=== PATIENT | male | born 1955 | race Caucasian/White ===

== ENCOUNTER 2020-10-31 06:00 | Day surgery (SDC) | payer MEDICARE ==
[2020-10-25 11:30] LABS: BASOPHILS % (AUTO) 0.3 % (0.0-5.0); EOSINOPHILS % (AUTO) 2.1 % (0.0-8.0); HEMATOCRIT 38.9 % (42-54); LYMPHOCYTES % (AUTO) 31.4 % (21.0-51.0); MEAN CORPUSCULAR HEMOGLOBIN 30.8 pg (27.0-33.0); MEAN CORPUSCULAR HGB CONC 33.7 g/dL (32.0-36.0); MEAN CORPUSCULAR VOLUME 91.5 fL (79-99); MONOCYTES % (AUTO) 7.6 % (3.0-13.0); NEUTROPHILS % (AUTO) 58.2 % (40.0-77.0); PLATELET COUNT (AUTO) 225 K/uL (130-400); RED BLOOD CELL COUNT(AUTO) 4.25 MIL/uL (4.50-6.20); RED CELL DISTRIBUTION WIDTH 12.8 % (11.0-15.5)
[2020-10-25 11:42] LABS: POTASSIUM 4.2 mmol/L (3.5-5.1)
[2020-10-30 10:24] VITALS: BP 132/71
[2020-10-31] VITALS (17 sets, daily range): BP systolic 132–192; BP diastolic 75–107
[~2020-10-31] VITALS: Ht 176.5 cm; Wt 84.8 kg
[~2020-10-31 06:00] MED LIST: CYAN-52 PO; MULT-1203 PO; OMEG-148 PO; PSYL1PAC11 PO
[2020-10-31] MEDS ORDERED: LACTATED RINGERS 1000ML 1,000 ML IV ONE (07:17)
[2020-10-31] MEDS ORDERED: CEFAZOLIN SODIUM 1 GM VIAL IVP ONE (08:00)
[2020-10-31] MEDS ORDERED: DEXAMETHASONE SOD PHOSPHATE 10MG/ML 1ML VIAL ONE (08:33)
[2020-10-31] MEDS ORDERED: LIDOCAINE PF 100MG/5ML (2%) SYRINGE 5ML ONE (08:33)
[2020-10-31] MEDS ORDERED: ONDANSETRON 4MG INJ ONE (08:34)
[2020-10-31] MEDS ORDERED: MIDAZOLAM HCL 1 MG/ML 2ML VIAL ONE (08:34)
[2020-10-31] MEDS ORDERED: FENTANYL CITRATE PF 50 MCG/1 ML 2ML VIAL ONE (08:35)
[2020-10-31] MEDS ORDERED: PROPOFOL 10 MG/ML 20ML VIAL IV ONE (08:35)
[2020-10-31] MEDS ORDERED: EPHEDRINE SULFATE 50 MG/ML AMPULE ONE ×2 (08:42→08:46)
[2020-10-31] MEDS ORDERED: EPINEPHRINE PF 1MG AMP ONE ×2 (08:58→09:10)
[2020-10-31 09:27] LABS: ABG HCO3 23.2 mmol/L (21.0-28.0); ABG OXYGEN SATURATION 99.5 % (95.0-99.0); ABG PCO2 42 mmHg (35-48)
[2020-10-31] MEDS ORDERED: POTASSIUM CHLORIDE 20MEQ/100ML 100 ML IV ONE (09:28)
[2020-10-31] MEDS ORDERED: NOREPINEPHRINE BITARTRATE 1 MG/1 ML ML IV ONE (09:34)
[2020-10-31] MEDS ORDERED: ACET1TAB25 PO (09:40)
[2020-10-31] MEDS ORDERED: CEPH500B PO (09:40)
[2020-10-31 10:00] LABS: BASOPHILS % (AUTO) 0.3 % (0.0-5.0); EOSINOPHILS % (AUTO) 2.3 % (0.0-8.0); HEMATOCRIT 38.4 % (42-54); LYMPHOCYTES % (AUTO) 31.8 % (21.0-51.0); MEAN CORPUSCULAR HEMOGLOBIN 30.2 pg (27.0-33.0); MEAN CORPUSCULAR HGB CONC 33.3 g/dL (32.0-36.0); MEAN CORPUSCULAR VOLUME 90.6 fL (79-99); MONOCYTES % (AUTO) 7.2 % (3.0-13.0); NEUTROPHILS % (AUTO) 58.1 % (40.0-77.0); PLATELET COUNT (AUTO) 211 K/uL (130-400); RED BLOOD CELL COUNT(AUTO) 4.24 MIL/uL (4.50-6.20); RED CELL DISTRIBUTION WIDTH 12.6 % (11.0-15.5); WHITE BLOOD COUNT (AUTO) 7.5 K/uL (4.8-10.8)
[2020-10-31 10:09] LABS: CARBON DIOXIDE 26 mmol/L (21-32); CHLORIDE 105 mmol/L (101-111); CREATININE 0.9 mg/dL (0.5-1.5); GLOMERULAR FILTR. RATE CALC 90 mL/min (>60); GLUCOSE,RANDOM 143 mg/dL (70-105); POTASSIUM 3.4 mmol/L (3.5-5.1); SODIUM SERUM 142 mmol/L (136-145); UREA NITROGEN, BLOOD 12 mg/dL (7-18)
[2020-10-31 10:28] LABS: ALANINE AMINOTRANSFERASE 31 U/L (12-78); ALBUMIN 3.6 g/dL (3.5-5.0); ASPARTATE AMINOTRANSFERASE 27 U/L (10-37); BILIRUBIN,TOTAL 0.4 mg/dL (0.2-1.0); CREATINE KINASE, TOTAL 144 U/L (21-232); MYOGLOBIN 47 ng/mL (10-92); TOTAL PROTEIN, SERUM 7.2 g/dL (6.0-8.3); TROPONIN I < 0.04 ng/mL (0.00-0.06)
== END 2020-10-31 11:45 | disposition home or self-care (01) ==
LOC: DAH 06:00
PROVIDERS: ATTEND Orthopaedic Surgery
DX: S83.271A Complex tear of lateral meniscus, current injury, right knee, initial encounter (principal); M17.12 Unilateral primary osteoarthritis, left knee; Z20.822 Contact with and (suspected) exposure to COVID-19; I42.9 Cardiomyopathy, unspecified; E78.5 Hyperlipidemia, unspecified; G89.29 Other chronic pain; E66.9 Obesity, unspecified; X50.1XXA Overexertion from prolonged static or awkward postures, initial encounter; Y93.89 Activity, other specified; Y92.89 Other specified places as the place of occurrence of the external cause
CPT/HCPCS: 29881; 36415 ×2; 80048; 80053; 82435; 82550; 82803; 82947; 83605; 83874; 84132; 84295; 84484; 85018; 85025 ×2; 93005 ×2; 93306; A4215; A4221; A4222; A4223; A4606; A4649 ×2; A4663; A4930; A5120; A6223; C9803; J0171 ×2; J0690; J1100; J2001; J2250; J2405; J2704; J3010; J3480; J3490 ×3; J7040; J7120 ×2; U0003

== ENCOUNTER 2022-04-18 06:00 | Day surgery (SDC) | payer OTHER, MEDICARE ==
[2022-04-16 10:05] LABS: BASOPHILS % (AUTO) 0.3 % (0.0-5.0); EOSINOPHILS % (AUTO) 1.7 % (0.0-8.0); HEMATOCRIT 39.8 % (42-54); MEAN CORPUSCULAR HGB CONC 33.9 g/dL (32.0-36.0); MEAN CORPUSCULAR VOLUME 91.5 fL (79-99); MONOCYTES % (AUTO) 8.2 % (3.0-13.0); NEUTROPHILS % (AUTO) 69.4 % (40.0-77.0); PLATELET COUNT (AUTO) 211 K/uL (130-400); RED BLOOD CELL COUNT(AUTO) 4.35 MIL/uL (4.50-6.20); WHITE BLOOD COUNT (AUTO) 7.1 K/uL (4.8-10.8)
[2022-04-16 10:13] LABS: ALBUMIN 3.8 g/dL (3.5-5.0); CARBON DIOXIDE 29 mmol/L (21-32); CHLORIDE 101 mmol/L (101-111); CREATININE 1.1 mg/dL (0.5-1.5); GLOMERULAR FILTR. RATE CALC 71 mL/min (>60); GLUCOSE,RANDOM 99 mg/dL (70-105); POTASSIUM 4.1 mmol/L (3.5-5.1); SODIUM SERUM 139 mmol/L (136-145); UREA NITROGEN, BLOOD 14 mg/dL (7-18)
[2022-04-16 10:15] LABS: CRP QUANTITATIVE < 2.00 mg/L (0.00-9.0)
[2022-04-16 15:49] VITALS: BP 130/74
[2022-04-18] VITALS (19 sets, daily range): BP systolic 99–139; BP diastolic 54–89
[~2022-04-18] VITALS: Ht 175.3 cm; Wt 81.1 kg
[~2022-04-18 06:00] MED LIST changes: -OMEG-148 PO; +OMEP20CA12 PO; -PSYL1PAC11 PO; +ROSU10TA28 PO; +ZINC220T4 PO
[2022-04-18] MEDS: CEFAZOLIN SODIUM 1 GM VIAL IVP SCH ×2 (06:00→08:20)
[2022-04-18] MEDS ORDERED: EPINEPHRINE PF 1MG (1:1,000) 1 MG/ML AMP ONE (06:13)
[2022-04-18] MEDS ORDERED: LACTATED RINGERS 1000ML 1,000 ML IV ONE (06:43)
[2022-04-18] MEDS ORDERED: PHENYLEPHRINE HCL 10 MG/ML 1ML VIAL IV ONE ×2 (07:24→07:30)
[2022-04-18] MEDS ORDERED: DEXAMETHASONE SOD PHOSPHATE 10MG/ML 1ML VIAL ONE (07:24)
[2022-04-18] MEDS ORDERED: GLYCOPYRROLATE 1 MG/5 ML SYRINGE ONE (07:24)
[2022-04-18] MEDS ORDERED: PROPOFOL 10 MG/ML 20ML VIAL IV ONE (07:24)
[2022-04-18] MEDS ORDERED: ONDANSETRON 4MG INJ ONE (07:24)
[2022-04-18] MEDS ORDERED: MIDAZOLAM HCL 1 MG/ML 2ML VIAL ONE (07:25)
[2022-04-18] MEDS ORDERED: ROCURONIUM 10MG/1ML SYR 10 MG/ML ML ONE (07:25)
[2022-04-18] MEDS ORDERED: FENTANYL CITRATE PF 50 MCG/1 ML 2ML VIAL ONE (07:25)
[2022-04-18] MEDS ORDERED: NEOSTIGMINE 5MG/5ML SYR IV ONE (07:25)
[2022-04-18] MEDS ORDERED: LIDOCAINE PF 100MG/5ML (2%) SYRINGE 5ML ONE (07:26)
[2022-04-18] MEDS ORDERED: ROPIVACAINE 0.5% 5MG/ML 30ML IJ ONE (07:30)
[2022-04-18] MEDS ORDERED: DEXAMETHASONE SOD PHOSPHATE 4 MG/ML 1ML VIAL ONE (07:30)
[2022-04-18] MEDS ORDERED: HYDR-4068 PO (12:05)
[2022-04-18] MEDS ORDERED: CYCL5TAB PO (12:05)
[2022-04-18] MEDS ORDERED: MELO10CA3 PO (12:05)
== END 2022-04-18 13:45 | disposition home or self-care (01) ==
LOC: DAH 06:00
PROVIDERS: ATTEND Student in an Organized Health Care Education/Training Program
DX: S46.011A Strain of muscle(s) and tendon(s) of the rotator cuff of right shoulder, initial encounter (principal); S46.111A Strain of muscle, fascia and tendon of long head of biceps, right arm, initial encounter; M75.41 Impingement syndrome of right shoulder; M19.011 Primary osteoarthritis, right shoulder; G89.29 Other chronic pain; K21.9 Gastro-esophageal reflux disease without esophagitis; E78.5 Hyperlipidemia, unspecified; Z79.899 Other long term (current) drug therapy; Z79.01 Long term (current) use of anticoagulants; Z98.890 Other specified postprocedural states; X58.XXXA Exposure to other specified factors, initial encounter; Y93.89 Activity, other specified; Y92.89 Other specified places as the place of occurrence of the external cause
CPT/HCPCS: 82040; 80048; 85025; 84134; 86140; 87426; 36415; 29827; 29826; J1100 ×2; A4663; J7030; J7120 ×2; J3010; J0690; J3490; J2710; J2001; J0171; J2250; J2704; J2405; J2795; J2370 ×2; A6204; A4649 ×2; C1713; A5120; A4215; A4223; A4222; A4221; A4600

== ENCOUNTER 2024-02-04 16:12 | Emergency (ER) | payer MEDICARE, OTHER ==
[~2024-02-04] VITALS: Ht 175.3 cm; Wt 76.2 kg
[~2024-02-04 16:12] MED LIST changes: +CYCL5TAB PO; +HYDR-4068 PO; +MELO10CA3 PO; -ROSU10TA28 PO; +ROSU10TA72 PO
[2024-02-04] MEDS: DIPH,PERTUSS(ACELL),TET VAC/PF 0.5 ML VIAL IM ONE (18:03)
[2024-02-04 18:28] VITALS: BP 111/62; PULSE 63; RESP 20; O2SAT 99
== END 2024-02-04 18:49 | disposition home or self-care (01) ==
LOC: EDH 16:12
DX: S01.01XA Laceration without foreign body of scalp, initial encounter (principal); Z79.899 Other long term (current) drug therapy; Z98.890 Other specified postprocedural states; W11.XXXA Fall on and from ladder, initial encounter; Y93.89 Activity, other specified; Y92.89 Other specified places as the place of occurrence of the external cause; Y99.8 Other external cause status
CPT/HCPCS: 12002; 70450; 72125; 90471; 90715

== ENCOUNTER 2024-02-10 10:24 | Emergency (ER) | payer OTHER ==
[~2024-02-10] VITALS: Ht 175.3 cm; Wt 77.1 kg
[2024-02-10 10:26] VITALS: BP 159/84; PULSE 95; RESP 18
== END 2024-02-10 12:03 | disposition home or self-care (01) ==
LOC: EDH 10:24
DX: S01.01XD Laceration without foreign body of scalp, subsequent encounter (principal); Z48.02 Encounter for removal of sutures; Z79.899 Other long term (current) drug therapy; Z98.890 Other specified postprocedural states; X58.XXXD Exposure to other specified factors, subsequent encounter
CPT/HCPCS: 99281